=== PATIENT | female | born 1960 | race Caucasian/White ===

== ENCOUNTER 2019-01-09 12:36 | Emergency (ER) | payer OTHER ==
[~2019-01-09] VITALS: Ht 154.9 cm; Wt 70.3 kg
[2019-01-09] MEDS ORDERED: SYNTHROID50 MCG PO (12:48)
[2019-01-09] MEDS ORDERED: PROGESTERONE100 MG PO (12:49)
[2019-01-09 14:57] VITALS: BP 133/89
== END 2019-01-09 14:59 | disposition home or self-care (01) ==
LOC: M.ERS 12:36
DX: S61.011A Laceration without foreign body of right thumb without damage to nail, initial encounter (principal); Z91.040 Latex allergy status; Z90.710 Acquired absence of both cervix and uterus; W26.8XXA Contact with other sharp object(s), not elsewhere classified, initial encounter; Y93.89 Activity, other specified; Y92.89 Other specified places as the place of occurrence of the external cause; Y99.8 Other external cause status